=== PATIENT | male | born 1985 | race Caucasian/White ===

== ENCOUNTER 2020-07-23 14:55 | Inpatient (IN) | payer MEDICAID ==
[~2020-07-23] VITALS: Ht 180.3 cm; Wt 106.1 kg
--- NOTE | 2020-07-23 18:12 | NUR ---
Patient was admitted from [facility] under Dr. Daigle with Diagnosis of Left Distal Humerus Fracture. Patient is awake, alert and verbally responsive. No signs of distress noted. No SOB. Afebrile. No complain of pain at this time. Patient will have a Regular Diet and NPO after Midnight. All needs attended and met. Kept clean and comfortable. Will continue to monitor.
[2020-07-23 18:40] VITALS: BP 156/95
[2020-07-23] MEDS ORDERED: ONDANSETRON 4 MG/2 ML VIAL IV PRN (19:00)
[2020-07-23] MEDS ORDERED: Z GUARD REMEDY PASTE 57 GM TUBE TOP PRN (19:00)
[2020-07-23 19:50] LABS: BASOPHILS # (AUTO) 0.1 K/uL (0.0-8.0); BASOPHILS % (AUTO) 0.9 % (0.0-2.0); EOSINOPHILS # (AUTO) 0.1 K/uL (0.0-0.7); EOSINOPHILS % (AUTO) 1.1 % (0.0-7.0); HEMATOCRIT 28.6 % (36.7-47.1); HEMOGLOBIN 9.8 g/dL (12.5-16.3); LYMPHOCYTES # (AUTO) 2.7 K/uL (20.0-40.0); LYMPHOCYTES % (AUTO) 20.5 % (20.5-51.5); MEAN CORPUSCULAR HEMOGLOBIN 38.2 uug (23.8-33.4); MEAN CORPUSCULAR HGB CONC 34 g/dL (32.5-36.3); MEAN CORPUSCULAR VOLUME 111.4 fL (73.0-96.2); MONOCYTES # (AUTO) 1.3 K/uL (2.0-10.0); MONOCYTES % (AUTO) 9.7 % (0.0-11.0); NEUTROPHILS # (AUTO) 8.8 K/uL (1.8-8.9); NEUTROPHILS % (AUTO) 67.8 % (38.5-71.5); PLATELET COUNT (AUTO) 377 K/uL (152-348); RED BLOOD CELL COUNT(AUTO) 2.56 MIL/uL (4.06-5.63); WHITE BLOOD COUNT (AUTO) 12.9 K/uL (3.6-10.2)
[2020-07-23 19:55] LABS: BILIRUBIN,TOTAL 1.8 mg/dL (0.2-1.0); MAGNESIUM 1.8 mg/dL (1.8-2.4); PHOSPHOROUS 7.3 mg/dL (2.5-4.9); POTASSIUM 4.7 mmol/L (3.5-5.1); TOTAL PROTEIN, SERUM 6.9 g/dL (6.4-8.2)
[2020-07-23] MEDS ORDERED: LORAZEPAM 2 MG/1 ML VIAL IV PRN (20:15)
[2020-07-23] MEDS ORDERED: CEFAZOLIN 1 G VIAL ONE (20:26)
[2020-07-23] MEDS: HYDROMORPHONE 1 MG/1 ML DISP.SYRIN IV PRN (20:32)
[2020-07-23 20:42] VITALS: BP 152/97
[2020-07-23] MEDS: CEFAZOLIN 2 G in IV DEXTROSE 5% 100 ML IV SCH (21:15)
[2020-07-23] MEDS: ACETAMINOPHEN 325 MG TABLET PO PRN (22:48)
--- NOTE | 2020-07-23 23:37 | NUR ---
AAox4 Ambulatory. Admitted for left humerus fracture. Left shoulder dressing clean dry and intact. Patient for possible surgery tonight. Tolerated po diet well. Patient NPO after MN. RT INT intact, IV NSS @ 75 cc/hr infusing well. IV Ancef given as ordered. No ill effects noted. Medicated with Dilaudid as needed for pain. Slight relief noted. Will monitor patient. VSS.
[2020-07-24] MEDS: ZOLPIDEM 5 MG TABLET PO PRN ×2 (00:26→23:21)
[2020-07-24] MEDS: HYDROMORPHONE 1 MG/1 ML DISP.SYRIN IV PRN ×3 (00:57→09:37)
[2020-07-24 02:00] LABS: BAND % (MANUAL) 5 % (0-10); LYMPHOCYTES % (MANUAL) 16 % (20-40); MONOCYTES % (MANUAL) 10 % (2-10); NEUTROPHILS % (MANUAL) 69 % (42-75)
[2020-07-24 05:16] VITALS: BP 159/102
[2020-07-24] MEDS: CEFAZOLIN 2 G in IV DEXTROSE 5% 100 ML IV SCH ×3 (05:29→21:57)
[2020-07-24 05:35] VITALS: BP 159/103
--- NOTE | 2020-07-24 06:34 | NUR ---
End of shift notes: NPO maintained. For OR today. IVF's infusing well. IV Ancef given as ordered. No side effects noted. Medicated with Dilaudid 1mg for pain left shoulder. Will monitor for relief. Voiding well. VSS. No acute distress noted.
[2020-07-24 07:43] LABS: BASOPHILS # (AUTO) 0.1 K/uL (0.0-8.0); BASOPHILS % (AUTO) 0.7 % (0.0-2.0); EOSINOPHILS # (AUTO) 0.1 K/uL (0.0-0.7); EOSINOPHILS % (AUTO) 1.5 % (0.0-7.0); HEMATOCRIT 31.4 % (36.7-47.1); HEMOGLOBIN 10.9 g/dL (12.5-16.3); LYMPHOCYTES # (AUTO) 1.9 K/uL (20.0-40.0); LYMPHOCYTES % (AUTO) 21.2 % (20.5-51.5); MEAN CORPUSCULAR HEMOGLOBIN 38.7 uug (23.8-33.4); MEAN CORPUSCULAR HGB CONC 35 g/dL (32.5-36.3); MEAN CORPUSCULAR VOLUME 111.7 fL (73.0-96.2); MONOCYTES # (AUTO) 0.8 K/uL (2.0-10.0); NEUTROPHILS # (AUTO) 6.2 K/uL (1.8-8.9); NEUTROPHILS % (AUTO) 67.6 % (38.5-71.5); PLATELET COUNT (AUTO) 325 K/uL (152-348); RED BLOOD CELL COUNT(AUTO) 2.81 MIL/uL (4.06-5.63); WHITE BLOOD COUNT (AUTO) 9.1 K/uL (3.6-10.2)
[2020-07-24 07:52] LABS: POTASSIUM 3.8 mmol/L (3.5-5.1)
[2020-07-24] MEDS: THIAMINE HCL 100 MG TABLET PO SCH (08:05)
[2020-07-24] MEDS: FOLIC ACID 1 MG TABLET PO SCH (08:05)
[2020-07-24] MEDS ORDERED: PANTOPRAZOLE SODIUM 40 MG VIAL IV SCH (09:00)
[2020-07-24] MEDS: IV NS 1000 ML 1,000 ML IV PRN ×2 (11:37→23:06)
[2020-07-24 12:00] VITALS: BP 144/93
[2020-07-24 15:54] VITALS: BP 140/92
[2020-07-24] MEDS: HYDROMORPHONE 2 MG/1 ML DISP.SYRIN IV PRN ×2 (17:28→22:07)
[2020-07-24 17:50] LABS: BAND % (MANUAL) 4 % (0-10); EOSINOPHILS % (MANUAL) 1 % (0-8); LYMPHOCYTES % (MANUAL) 23 % (20-40); MONOCYTES % (MANUAL) 13 % (2-10); NEUTROPHILS % (MANUAL) 59 % (42-75)
[2020-07-24 20:30] VITALS: BP 145/91
--- NOTE | 2020-07-25 05:11 | NUR ---
patient aaox3. able to verbalize needs. all needs met. NPO since midnight. RN informed patient not to eat anything in his room and patent understood information. will endorse to morning nurse to hold try unless surgery is not scheduled today. antibiotics administered and tolerated well without any ASE. PIV intact and patent. orders received from Dr. lopez for preop work up procedure. consent in folder for possible surgery today signed by morning nurse. safety precautions provided and call light within reach. will continue to monitor and assess.
[2020-07-25] MEDS: CEFAZOLIN 2 G in IV DEXTROSE 5% 100 ML IV SCH ×3 (06:25→22:08)
[2020-07-25] MEDS: PANTOPRAZOLE SODIUM 40 MG TABLET.DR PO SCH ×2 (06:25→06:38)
[2020-07-25] MEDS: HYDROMORPHONE 2 MG/1 ML DISP.SYRIN IV PRN ×4 (06:26→20:44)
[2020-07-25 06:30] VITALS: BP 131/80
[2020-07-25] MEDS: ACETAMINOPHEN 325 MG TABLET PO PRN (08:51)
[2020-07-25] MEDS: THIAMINE HCL 100 MG TABLET PO SCH (08:51)
[2020-07-25] MEDS: FOLIC ACID 1 MG TABLET PO SCH (08:51)
[2020-07-25 09:09] LABS: *BILIRUBIN,URIN NEGATIVE (NEGATIVE); *BLOOD, URINE NEGATIVE (NEGATIVE); *CLARITY,URINE CLEAR (CLEAR); *COLOR,URINE YELLOW (YELLOW); *KETONES,URINE NEGATIVE (NEGATIVE); *UROBILINOGEN,URINE 0.2 E.U./dl (NORMAL); LEUKOCYTE ESTERASE ,URINE NEGATIVE (NEGATIVE); NITRITE, URINE NEGATIVE (NEGATIVE); UGLUCOSE NEGATIVE (NEGATIVE)
[2020-07-25 09:45] LABS: BASOPHILS # (AUTO) 0.1 K/uL (0.0-8.0); BASOPHILS % (AUTO) 0.8 % (0.0-2.0); EOSINOPHILS # (AUTO) 0.1 K/uL (0.0-0.7); EOSINOPHILS % (AUTO) 1.1 % (0.0-7.0); HEMOGLOBIN 8.7 g/dL (12.5-16.3); LYMPHOCYTES # (AUTO) 1.2 K/uL (20.0-40.0); LYMPHOCYTES % (AUTO) 17.2 % (20.5-51.5); MEAN CORPUSCULAR HEMOGLOBIN 39.1 uug (23.8-33.4); MEAN CORPUSCULAR HGB CONC 35 g/dL (32.5-36.3); MEAN CORPUSCULAR VOLUME 112.9 fL (73.0-96.2); MONOCYTES # (AUTO) 0.7 K/uL (2.0-10.0); MONOCYTES % (AUTO) 9.8 % (0.0-11.0); NEUTROPHILS # (AUTO) 5.1 K/uL (1.8-8.9); NEUTROPHILS % (AUTO) 71.1 % (38.5-71.5); PLATELET COUNT (AUTO) 263 K/uL (152-348); WHITE BLOOD COUNT (AUTO) 7.2 K/uL (3.6-10.2)
--- NOTE | 2020-07-25 09:46 | NUR ---
Received patient sitting up in bed. Patient is awake, alert and oriented. No signs of respiratory distress noted at this time. Patient is saturating well on room air. Patient painful throbbing in his shoulder. Last pain medication given approximately 0630, will check eMAR for breakthrough pain medication to administer. IV is a right hand 20 gauge running normal saline at 75 mls/hr. Patient was initially NPO pending ORIF, upon clarification surgery date is 07/26/2020 so patient has been returned to regular diet as ordered. Safety precautions in place, bed in lowest position and locked with call light and belongings within reach. Will continue to monitor.
[2020-07-25 09:54] LABS: RED BLOOD CELL COUNT(AUTO) 2.21 MIL/uL (4.06-5.63)
[2020-07-25 09:57] LABS: CREATININE 0.8 mg/dL (0.6-1.3); MAGNESIUM 1.7 mg/dL (1.8-2.4); PHOSPHOROUS 2.7 mg/dL (2.5-4.9); POTASSIUM 3.5 mmol/L (3.5-5.1)
[2020-07-25 11:02] VITALS: BP 136/80
[2020-07-25] MEDS: MAGNESIUM SULFATE/D5W 100 ML IV SCH ×2 (15:34→16:40)
[2020-07-25 15:40] VITALS: BP 134/79
--- NOTE | 2020-07-25 18:32 | NUR ---
Patient is resting in bed with no signs of distress noted. Patient will be NPO at midnight pending ORIF of left arm. IVF's infusing at 75 mls/hr. All medications given as ordered. IV Ancef given as ordered. No side effects noted. Will monitor for relief. Voiding well with vital signs stable. Consent sign and placed in chart for surgery tomorrow at 0800. Will endorse to oncoming nurse.
[2020-07-25] MEDS: IV NS 1000 ML 1,000 ML IV PRN (18:48)
[2020-07-25 20:05] VITALS: BP 144/89
[2020-07-25] MEDS: ZOLPIDEM 5 MG TABLET PO PRN (22:56)
[2020-07-26] MEDS: HYDROMORPHONE 2 MG/1 ML DISP.SYRIN IV PRN ×4 (01:03→23:48)
--- NOTE | 2020-07-26 04:16 | NUR ---
Received patient in bed, AAO x4. No acute distress or SOB was noted. On room air. Able to make needs known. Complained of pain on left arm, rated 7/10 on numeric scale, PRN Dilaudid IV administered and effective. All due medication administered and well tolerated. IV antibiotic administered. Patient is NPO after midnight due to surgery on left humerus. Safety measures maintained. Fall prevention maintained. All needs attended promptly. Bed in locked and low position, Side rails up x2 for safety. Continue to monitor and will endorse to oncoming nurse accordingly.
--- NOTE | 2020-07-26 04:19 | NUR ---
Patient has been scheduled for ORIF on left humerus. bull gang supervisor time is 0800 am, 07/26/20. Consent is ready. Patient is NPO from the midnight.
[2020-07-26 05:48] VITALS: BP 140/74
[2020-07-26] MEDS: CEFAZOLIN 2 G in IV DEXTROSE 5% 100 ML IV SCH ×3 (06:30→23:51)
[2020-07-26] MEDS: PANTOPRAZOLE SODIUM 40 MG TABLET.DR PO SCH (06:39)
[2020-07-26 06:45] LABS: BASOPHILS % (AUTO) 0.6 % (0.0-2.0); EOSINOPHILS # (AUTO) 0.1 K/uL (0.0-0.7); EOSINOPHILS % (AUTO) 1.8 % (0.0-7.0); HEMATOCRIT 27.1 % (36.7-47.1); HEMOGLOBIN 9.3 g/dL (12.5-16.3); LYMPHOCYTES # (AUTO) 1.6 K/uL (20.0-40.0); LYMPHOCYTES % (AUTO) 22.4 % (20.5-51.5); MEAN CORPUSCULAR HEMOGLOBIN 38.9 uug (23.8-33.4); MEAN CORPUSCULAR HGB CONC 34 g/dL (32.5-36.3); MEAN CORPUSCULAR VOLUME 113.2 fL (73.0-96.2); MONOCYTES # (AUTO) 0.9 K/uL (2.0-10.0); MONOCYTES % (AUTO) 11.8 % (0.0-11.0); NEUTROPHILS # (AUTO) 4.7 K/uL (1.8-8.9); NEUTROPHILS % (AUTO) 63.4 % (38.5-71.5); PLATELET COUNT (AUTO) 283 K/uL (152-348); WHITE BLOOD COUNT (AUTO) 7.4 K/uL (3.6-10.2)
[2020-07-26 06:48] LABS: CREATININE 0.8 mg/dL (0.6-1.3); MAGNESIUM 2.2 mg/dL (1.8-2.4); PHOSPHOROUS 3.3 mg/dL (2.5-4.9); POTASSIUM 3.9 mmol/L (3.5-5.1)
[2020-07-26 06:53] LABS: RED BLOOD CELL COUNT(AUTO) 2.39 MIL/uL (4.06-5.63)
[2020-07-26] MEDS ORDERED: BUPIVACAINE PF 0.5% 30 ML VIAL ONE (07:04)
[2020-07-26] MEDS ORDERED: VANCOMYCIN 1000 MG VIAL ONE (07:04)
[2020-07-26] MEDS ORDERED: POLYMYXIN B SULFATE 500,000 UNITS, BACITRACIN 50,000 UNITS, NORMAL SALINE 20 ML MC ONE ×3 (07:15)
--- NOTE | 2020-07-26 07:25 | NUR ---
Received patient sitting up in bed. Patient is awake, alert and oriented. No signs of respiratory distress noted at this time. Patient is saturating well on room air. IV is a right hand 20 gauge running Ancef at 100 mls/hr. Patient is NPO pending ORIF. Envelop with patient valuables given to me by production supervisor off shift nurse Alysia and it was placed in the contraband closet. Also patient dentures was put in the top draw in his room. Safety precautions in place, bed in lowest position and locked with call light and belongings within reach. Will continue to monitor.
--- NOTE | 2020-07-26 07:30 | NUR ---
Patient taken off the floor for surgery. Patient was stable and saturating well with no signs of respiratory distress. Consent signed and in chart and checklist already completed. Will continue to monitor when patient is back on the floor.
[2020-07-26] MEDS ORDERED: MIDAZOLAM HCL 10 MG/2 ML VIAL ONE (07:58)
[2020-07-26] MEDS ORDERED: BUPIVACAINE/EPI PF 0.25% 30 ML VIAL ONE ×2 (07:59→10:41)
[2020-07-26] MEDS ORDERED: ALBUMIN HUMAN 5% 250 ML IV ONE (09:45)
[2020-07-26] MEDS ORDERED: ALBUMIN HUMAN 5% 250 ML ONE (09:48)
[2020-07-26] MEDS ORDERED: ALBUMIN HUMAN 25% 50 ML IV ONE (10:30)
[2020-07-26] MEDS ORDERED: FENTANYL CITRATE 100 MCG/2 ML AMPUL ONE (10:47)
[2020-07-26] MEDS ORDERED: IV D5W-0.45% NS +20 KCL 1,000 ML IV ONE (11:43)
[2020-07-26 11:58] LABS: LYMPHOCYTES % (MANUAL) 20 % (20-40); MONOCYTES % (MANUAL) 2 % (2-10); NEUTROPHILS % (MANUAL) 78 % (42-75)
[2020-07-26 12:44] LABS: HEMATOCRIT 25.1 % (36.7-47.1); HEMOGLOBIN 8.4 g/dL (12.5-16.3)
[2020-07-26] MEDS ORDERED: POTASSIUM CHLORIDE 20 MEQ in IV D5 1/2 NS 1000 ML 1,000 ML IV PRN (15:00)
[2020-07-26 15:09] VITALS: BP_SYST 105; BP_SYST 138; BP_DIAS 71; BP_DIAS 77
[2020-07-26] MEDS ORDERED: MORPHINE SULFATE 4 MG/1 ML DISP.SYRIN IV PRN (15:45)
[2020-07-26 16:00] VITALS: BP 125/65
[2020-07-26] MEDS: FOLIC ACID 1 MG TABLET PO SCH (16:05)
[2020-07-26] MEDS: THIAMINE HCL 100 MG TABLET PO SCH (16:06)
--- NOTE | 2020-07-26 17:07 | NUR ---
Called pharmacy to clarify order for patient of albumin that was due at 0930 and 1045 when the patient was not on the floor but in surgery. Mark from the pharmacy says the order says fro surgery use. I asked him to clarify with Dr Vigil. Will hold until clarified.
--- NOTE | 2020-07-26 18:51 | NUR ---
Patient is resting in bed with no signs of distress noted. P IVF's infusing at 100 mls/hr. All medications given as ordered. Pain medication given as ordered. IV Ancef given as ordered. No side effects noted. Safety precautions in place, bed in lowest position and locked with call light and belongings within reach. Will endorse to oncoming nurse.
[2020-07-26 20:00] VITALS: BP 132/80
--- NOTE | 2020-07-26 20:00 | NUR ---
RECEIVED PATIENT AWAKE IN BED. A/O X4. C/O PAIN IN LEFT SHOULDER, STATING THAT PREVIOUS PAIN MEDICATION WAS NOT EFFECTIVE AND HE IS IN EXTREME PAIN 09/04. VSS. IVF INFUSING WELL TO RIGHT FOOT, #[address] OUT TO [address]. RODRIGUEZ FOR FURTHER PAIN MEDICATION ORDERS. LEFT ARM ELEVATED ON PILLOWS. NEUROVASCULAR CHECKS WNL, SENSATION PRESENT. NON-PITTING EDEMA NOTED TO BILATERAL HANDS, MORE NOTED ON LEFT HAND. ICE APPLIED TO AFFECTED AREA. CALL LIGHT IN REACH. ALL NEEDS ATTENDED, WILL CONTINUE TO MONITOR AND ASSESS.
--- NOTE | 2020-07-26 20:45 | NUR ---
PATIENT GIVEN DILAUDID 1.5MG IV PER RN FOR PAIN. CALL LIGHT IN REACH. PATIENT GIVEN INCENTIVE SPIROMETER AT BEDSIDE. VERBALIZED UNDERSTANDING. WILL CONTINUE TO MONITOR AND ASSESS.
[2020-07-26] MEDS: ACETAMINOPHEN 325 MG TABLET PO PRN (22:38)
--- NOTE | 2020-07-26 23:00 | NUR ---
PATIENT C/O OF "FEELING HOT." TEMPERATURE NOTED 100.3. PATIENT GIVEN TYLENOL 650MG PO PRN FOR ELEVATED TEMP. ALL NEEDS ATTENDED, WILL CONTINUE TO MONITOR AND ASSESS.
--- NOTE | 2020-07-27 00:15 | NUR ---
RECHECKED TEMPERATURE AND NOTED 99.1. ALL NEEDS ATTENDED. WILL CONTINUE TO MONITOR AND ASSESS.
[2020-07-27] MEDS: ZOLPIDEM 5 MG TABLET PO PRN (00:46)
[2020-07-27] MEDS: HYDROMORPHONE 2 MG/1 ML DISP.SYRIN IV PRN ×3 (03:09→09:19)
[2020-07-27 04:56] VITALS: BP 116/83
[2020-07-27] MEDS: PANTOPRAZOLE SODIUM 40 MG TABLET.DR PO SCH (06:06)
[2020-07-27 06:56] LABS: BASOPHILS # (AUTO) 0.1 K/uL (0.0-8.0); BASOPHILS % (AUTO) 0.4 % (0.0-2.0); EOSINOPHILS % (AUTO) 0.2 % (0.0-7.0); HEMATOCRIT 25.3 % (36.7-47.1); HEMOGLOBIN 8.6 g/dL (12.5-16.3); LYMPHOCYTES # (AUTO) 1.7 K/uL (20.0-40.0); LYMPHOCYTES % (AUTO) 11.5 % (20.5-51.5); MEAN CORPUSCULAR HEMOGLOBIN 37.6 uug (23.8-33.4); MEAN CORPUSCULAR HGB CONC 34 g/dL (32.5-36.3); MEAN CORPUSCULAR VOLUME 110.8 fL (73.0-96.2); MONOCYTES # (AUTO) 1.4 K/uL (2.0-10.0); MONOCYTES % (AUTO) 9.7 % (0.0-11.0); NEUTROPHILS # (AUTO) 11.6 K/uL (1.8-8.9); NEUTROPHILS % (AUTO) 78.2 % (38.5-71.5); PLATELET COUNT (AUTO) 291 K/uL (152-348); WHITE BLOOD COUNT (AUTO) 14.9 K/uL (3.6-10.2)
[2020-07-27 07:08] LABS: RED BLOOD CELL COUNT(AUTO) 2.28 MIL/uL (4.06-5.63)
[2020-07-27 07:16] LABS: CREATININE 0.9 mg/dL (0.6-1.3); MAGNESIUM 1.9 mg/dL (1.8-2.4); PHOSPHOROUS 2.7 mg/dL (2.5-4.9); POTASSIUM 4.2 mmol/L (3.5-5.1)
[2020-07-27] MEDS: CEFAZOLIN 2 G in IV DEXTROSE 5% 100 ML IV SCH (08:32)
[2020-07-27] MEDS ORDERED: ASPIRIN EC 81 MG TABLET.DR PO SCH (09:00)
[2020-07-27] MEDS: FOLIC ACID 1 MG TABLET PO SCH (09:19)
[2020-07-27] MEDS: THIAMINE HCL 100 MG TABLET PO SCH (09:19)
--- NOTE | 2020-07-27 09:20 | NUR ---
Awake, alert, oriented x 4. limited movement LUE, swollen with ice packs, supported with sling. Complaining of pain, medicated. IVF infusing.
[2020-07-27 12:00] VITALS: BP 133/73
[2020-07-27] MEDS ORDERED: HYDROCODONE/APAP 10-325 MG TABLET PO PRN (14:00)
[2020-07-27] MEDS ORDERED: THIA100T13 PO (15:19)
[2020-07-27] MEDS ORDERED: HYDR-4384 PO (15:19)
[2020-07-27] MEDS ORDERED: Folic Acid PO (15:19)
[2020-07-27 16:00] VITALS: BP 140/71
[2020-07-27] MEDS: ACETAMINOPHEN 325 MG TABLET PO PRN (18:50)
--- NOTE | 2020-07-27 18:52 | NUR ---
With discharge order to home. Saline lock removed. prescription and DC instruction given to patient, verbalized understanding. Waiting for family to black pickler
== END 2020-07-27 20:00 | disposition home or self-care (01) | DRG 315 ==
LOC: MEDSURG3 17:35
PROVIDERS: ADMIT Hospitalist; ATTEND Registered Nurse
PROC: 0PSG04Z Reposition Left Humeral Shaft with Internal Fixation Device, Open Approach (ICD-10-PCS; principal; 2020-07-26)
PROC: 30233N1 Transfusion of Nonautologous Red Blood Cells into Peripheral Vein, Percutaneous Approach (ICD-10-PCS; principal; 2020-07-26)
DX: S42.352A Displaced comminuted fracture of shaft of humerus, left arm, initial encounter for closed fracture (principal); V29.9XXA Motorcycle rider (driver) (passenger) injured in unspecified traffic accident, initial encounter; E66.9 Obesity, unspecified; F17.210 Nicotine dependence, cigarettes, uncomplicated; F17.220 Nicotine dependence, chewing tobacco, uncomplicated; K70.9 Alcoholic liver disease, unspecified; F10.188 Alcohol abuse with other alcohol-induced disorder; D72.829 Elevated white blood cell count, unspecified; K70.10 Alcoholic hepatitis without ascites; Y90.9 Presence of alcohol in blood, level not specified; Z68.32 Body mass index [BMI] 32.0-32.9, adult; D47.3 Essential (hemorrhagic) thrombocythemia; S63.501A Unspecified sprain of right wrist, initial encounter; S43.401A Unspecified sprain of right shoulder joint, initial encounter; E87.1 Hypo-osmolality and hyponatremia; E83.42 Hypomagnesemia; D50.9 Iron deficiency anemia, unspecified; T14.8XXA Other injury of unspecified body region, initial encounter; Y92.410 Unspecified street and highway as the place of occurrence of the external cause
CPT/HCPCS: 36415; 70030-TC; 71045; 73060; 83735; 84100; 85018; 85025; 85730; 86850; 86900; 86901; 86920; 87086; A4663; C9113; G0378; J0690; J1170; J2250; J2270; J3010; J3370; J3475; J3480; J3490; J7030; J7060; P9016-BL; P9021; P9045; P9047